=== PATIENT | male | born 1955 | race Caucasian/White ===

== ENCOUNTER → 2018-03-10 | Outpatient (CLI) | payer SELFPAY ==
--- NOTE | 2018-03-10 15:44 | KCIC ---
RS Compliance Statement: One or more of the following individualized dose reduction techniques were utilized for this examination: 1. Automated exposure control 2. Adjustment of the mA and/or kV according to patient size 3. Use of iterative reconstruction technique Coronary calcium score CT chest without contrast History: 62-year-old male with hyperlipidemia. Technique: With retrospective electrocardiogram gating 2.5 mm thick axial reconstructed noncontrast images of the chest at the level of the coronary arteries was performed. Images were post processed on a [employer] workstation and calcium score calculated using the modified Agatston Janowitz protocol. Findings: Total coronary calcium score is 132.9. This is a moderate plaque burden and high cardiovascular disease risk. This is based on the calcium score of 0 of the left main coronary artery, 39.1 of the left anterior descending artery, score of 0 of the left circumflex artery and score of 93.8 of the right coronary artery. Noncoronary findings demonstrate ectasia of the ascending thoracic aorta. Cardiac size normal, no pericardial effusion. Tiny hiatal hernia. Respiratory motion artifact in the lungs. Mild atelectasis or scarring in the periphery of the bilateral lower lobes. There is a 5 mm noncalcified nodule in the superior segment of the right lower lobe, image 23 of series 4. Calcified granuloma left upper lobe. IMPRESSION: 1. Patient's total calcium score is 132.9. 2. There is a 5 mm noncalcified nodule in the right lower lobe. Recommend noncontrast CT chest follow-up in 12 months per Fleischner Society guidelines. Electronically signed by: Yusef Berrios MD (03/10/2018 3:40 PM) [id number]
== END | disposition home or self-care (01) ==
LOC: KCIC CT 08:07
PROVIDERS: ATTEND Internal Medicine Cardiovascular Disease
DX: E78.5 Hyperlipidemia, unspecified (principal); I77.810 Thoracic aortic ectasia; J84.10 Pulmonary fibrosis, unspecified; I10 Essential (primary) hypertension
CPT/HCPCS: 75571